=== PATIENT | female | born 1945 | race Caucasian/White ===

== ENCOUNTER 2018-04-11 13:18 | Inpatient (IN) | payer MEDICAID ==
[~2018-04-11] VITALS: Ht 147.3 cm; Wt 95.3 kg
[2018-04-11 13:33] VITALS: BP 117/73
--- NOTE | 2018-04-11 13:39 | NUR ---
PT TRIAGED AND SENT TO [facility] AWARE OF PT STATUS.
--- NOTE | 2018-04-11 14:18 | NUR ---
PT AMBULATED TO ER BED 02
--- NOTE | 2018-04-11 14:22 | NUR ---
PT STATES SHE HAD ABSCESS DRAINED ON SUNDAY AND SHE IS HERE BECAUSE OF 9/10 PAIN AND STATES IT IS STILL LEAKING PUS. ABSCESS IS LOCATED ON R UPPER ARM. CMS INTACT, +SWELLING AND ERYTHEMA. DRESSING INTACT OVER WOUND. PT DNIES CP/COUGH/SOB. NAD. PLACED IN ED ROOM.
[2018-04-11] MEDS ORDERED: CLINDAMYCIN 600 MG in DEXTROSE 5% 50 ML IV ONE (14:55)
[2018-04-11] MEDS ORDERED: KETOROLAC 30 MG/ML VIAL IVP ONE (14:55)
[2018-04-11] MEDS ORDERED: NACL 0.9% 1,000 ML IV ONE (14:55)
[2018-04-11] MEDS ORDERED: CLINDAMYCIN 600 MG/4 ML VIAL ONE (15:09)
[2018-04-11 15:38] LABS: BASOPHILS % (AUTO) 0.5 % (0.0-2.0); EOSINOPHILS # (AUTO) 0.1 K/uL (0-0.4); EOSINOPHILS % (AUTO) 0.9 % (0.0-4.0); HEMATOCRIT 41.3 % (36-48); HEMOGLOBIN 13.8 g/dL (12.0-16.0); LYMPHOCYTES # (AUTO) 2.2 K/uL (2.5-16.5); LYMPHOCYTES % (AUTO) 27.2 % (20.5-51.1); MEAN CORPUSCULAR HEMOGLOBIN 30 pg (27-31); MEAN CORPUSCULAR HGB CONC 33 g/dL (33-37); MEAN CORPUSCULAR VOLUME 89.6 fL (80-94); MONOCYTES # (AUTO) 0.5 K/uL (0.8-1.0); MONOCYTES % (AUTO) 6.1 % (1.7-9.3); NEUTROPHILS # (AUTO) 5.4 K/uL (1.8-7.7); NEUTROPHILS % (AUTO) 65.3 % (42.2-75.2); PLATELET COUNT (AUTO) 226 K/uL (140-450); RED BLOOD CELL COUNT(AUTO) 4.61 MIL/uL (4.20-5.40); RED CELL DISTRIBUTION WIDTH 12.6 % (11.6-13.7); WHITE BLOOD COUNT (AUTO) 8.2 K/uL (4.8-10.8)
[2018-04-11] MEDS ORDERED: LIDOCAINE/EPI 1% 1:100000 20 ML VIAL INJ ONE (16:05)
[2018-04-11 16:10] LABS: POTASSIUM 3.6 mmol/L (3.5-5.1)
[2018-04-11 16:11] LABS: ALBUMIN 3.6 g/dL (3.4-5.0); ANION GAP 9.7 (8-16); CARBON DIOXIDE 28.9 mmol/L (21-32); CREATININE 0.6 mg/dL (0.6-1.3); TOTAL BILIRUBIN 0.5 mg/dL (0.0-1.0)
[2018-04-11] MEDS ORDERED: NACL 0.9% 1,000 ML IV SCH (17:46)
[2018-04-11] MEDS ORDERED: ACETAMINOPHEN 325 MG TAB PO PRN (17:50)
[2018-04-11] MEDS ORDERED: DOCUSATE SODIUM 100 MG GELCAP PO PRN (17:50)
[2018-04-11 18:21] LABS: FREE T4 (FREE THYROXINE) 1.08 ng/dL (0.76-1.46); MAGNESIUM 2.4 mg/dL (1.8-2.4); THYROID STIMULATING HORMONE 1.09 uIU/mL (0.34-3.74)
[2018-04-11 18:26] LABS: APPEARANCE,URINE CLEAR (CLEAR); BILIRUBIN,URINE NEGATIVE (NEGATIVE); BLOOD, URINE NEGATIVE (NEGATIVE); COLOR,URINE YELLOW (YELLOW); LEUKOCYTE ESTERASE ,URINE NEGATIVE (NEGATIVE); NITRITE, URINE NEGATIVE (NEGATIVE); UGLUCOSE NEGATIVE (NEGATIVE)
--- NOTE | 2018-04-11 18:38 | NUR ---
Patient will be admitted to care of DR AVENDANO. Admited toTELE. Will go to room 112A. Belongings list completed. Report to DEBORAH JOHNSON .
--- NOTE | 2018-04-11 18:40 | NUR ---
PATIENT ADMITTED TO THE UNIT FROM ER. PATIENT AWAKE, ALERT AND ORIENTED. NO S/S OF DISTRESS. ABSCESS NOTED TO THE RIGHT ARM WITH PURULENT DRAINAGE NOTED. WOUND CLEANED WITH NS AND COVERED WITH CLEAN DRESSING. PATIENT PLACED ON TELE MONITORING. BED LOWERED WITH CALL LIGHT WITHIN REACH. PATIENT'S SON PRESENT AT BEDSIDE
[2018-04-11 18:42] LABS: BARBITURATE, URINE NEG. ng/ml (NEG <=200); BENZODIAZEPINE, URINE NEG. ng/mL (NEG <=200); CANNABINOID, URINE NEG. ng/mL (NEG <=50); COCAINE, URINE NEG. ng/mL (NEG <=300); OPIATE, URINE NEG. ng/mL (NEG <=2000); PHENCYCLIDINE SCREEN,URINE NEG. ng/mL (NEG <=25)
--- NOTE | 2018-04-11 19:20 | NUR ---
RECEIVED PT FROM DEBORAH JOHNSON .PT KINYARWANDA SPEAKER AAOX4 AMBULATORY ON TELEMETRY SR HL ON LEFT THUMB;, AN ABSCESS AND REDNESS ON RT UPPER ARM [id number] AND OPEN ON THE CENTER 0.5 CM DRAINING PUS PT IS ORIENTED TO THE FLOOR CALL LIGHT WITHIN REACH.
[2018-04-11 20:00] VITALS: BP 140/80
--- NOTE | 2018-04-11 20:00 | NUR ---
DR LAI AT BED SIDE BLOOD SUGAR TEST 95
[2018-04-11] MEDS: DEXT 5% / NACL 0.9% 500 ML IV SCH (20:10)
[2018-04-11] MEDS ORDERED: DEXTROSE 50% 50 ML SYR IVP PRN (20:10)
[2018-04-11] MEDS ORDERED: INSULIN LISPRO SLIDING SCALE 100 UNITS/ML VIAL SUBQ PRN (20:10)
[2018-04-11] MEDS ORDERED: VANCOMYCIN PER PHARMACY MC PRN (20:10)
[2018-04-11] MEDS ORDERED: CETIRIZINE HCL PO PRN (20:15)
[2018-04-11] MEDS ORDERED: BECL10.62 IH (20:28)
[2018-04-11] MEDS ORDERED: CETI1SYR27 PO (20:28)
[2018-04-11] MEDS ORDERED: DOXY100C9 PO (20:28)
[2018-04-11] MEDS ORDERED: FURO-572 PO (20:28)
[2018-04-11] MEDS ORDERED: FAMO-90 PO (20:28)
[2018-04-11] MEDS ORDERED: AZEL205. NS (20:28)
[2018-04-11] MEDS ORDERED: CEPH250C16 PO (20:28)
[2018-04-11] MEDS ORDERED: CARV25TA PO (20:28)
[2018-04-11] MEDS ORDERED: LISI5TAB18 PO (20:28)
[2018-04-11] MEDS ORDERED: ASPI81CT89 PO (20:28)
[2018-04-11] MEDS ORDERED: FLONAS NS (20:28)
[2018-04-11] MEDS ORDERED: LIP80 PO (20:28)
[2018-04-11] MEDS ORDERED: VANCOMYCIN 1GM/DEXT 5% PREMIX 200 ML IV SCH (21:00)
[2018-04-11] MEDS: BLOOD GLUCOSE MONITORING 1 DEV DEV FS SCH (21:05)
[2018-04-11] MEDS: CARVEDILOL 12.5 MG TAB PO SCH (21:16)
--- NOTE | 2018-04-11 22:49 | NUR ---
DR LAI TRANSFER KPT FROM TELEMETRY TO MED SURG
[2018-04-11] MEDS ORDERED: VANCOMYCIN 1,000 MG VIAL ONE (22:56)
[2018-04-11] MEDS: HYDROcodone/APAP 7.5/325 MG 1 TAB PO PRN (23:07)
[2018-04-12] VITALS (7 sets, daily range): BP systolic 121–153; BP diastolic 55–74
--- NOTE | 2018-04-12 01:00 | NUR ---
PT SLEEPING WELL NPO POST MN
[2018-04-12] MEDS: DEXT 5% / NACL 0.9% 500 ML IV SCH ×2 (01:10→06:10)
--- NOTE | 2018-04-12 04:00 | NUR ---
SPONGE BATH GIVEN LINEN CHANGED IV ON LEFT THUMB INFUSING WELL PT VOIDING WELL
[2018-04-12] MEDS: BLOOD GLUCOSE MONITORING 1 DEV DEV FS SCH ×5 (06:43→21:43)
--- NOTE | 2018-04-12 06:46 | NUR ---
PT NPO POST MN BLOOD SUGAR TEST 122.
[2018-04-12 06:51] LABS: BASOPHILS # (AUTO) 0.1 K/uL (0.00-0.22); EOSINOPHILS # (AUTO) 0.1 K/uL (0-0.4); EOSINOPHILS % (AUTO) 1.6 % (0.0-4.0); HEMATOCRIT 36.9 % (36-48); HEMOGLOBIN 12.6 g/dL (12.0-16.0); LYMPHOCYTES # (AUTO) 2.9 K/uL (2.5-16.5); LYMPHOCYTES % (AUTO) 43.1 % (20.5-51.1); MEAN CORPUSCULAR HEMOGLOBIN 30 pg (27-31); MEAN CORPUSCULAR HGB CONC 34 g/dL (33-37); MEAN CORPUSCULAR VOLUME 88.9 fL (80-94); MONOCYTES # (AUTO) 0.5 K/uL (0.8-1.0); MONOCYTES % (AUTO) 7.2 % (1.7-9.3); NEUTROPHILS # (AUTO) 3.1 K/uL (1.8-7.7); NEUTROPHILS % (AUTO) 47.1 % (42.2-75.2); PLATELET COUNT (AUTO) 221 K/uL (140-450); RED BLOOD CELL COUNT(AUTO) 4.15 MIL/uL (4.20-5.40); RED CELL DISTRIBUTION WIDTH 12.8 % (11.6-13.7); WHITE BLOOD COUNT (AUTO) 6.6 K/uL (4.8-10.8)
--- NOTE | 2018-04-12 07:20 | NUR ---
RECEIVED REPORT FROM THE MATERIAL HANDLING WAREHOUSE SUPERVISOR NURSE AT BEDSIDE FOR CONTINUITY OF CARE. PT IS AWAKE AND ORIENTED, INDONESIAN SPEAKING. INTRODUCED MYSELF AND UPDATED THE BOARD. PT HAS DRESSING ON R UA. DRY AND INTACT. LBM ON 04/11, IV ON L THUMB 24G D5NS AT 100ML. PT IS TO HAVE I AND D TODAY. NPO SINCE MIDNIGHT. V/S WITHIN NORMAL RANGE. NO CONSENT IS SIGNED. WILL GET CONSENT. WILL CONTINUE TO MONITOR PT.
[2018-04-12 07:21] LABS: MAGNESIUM 2.2 mg/dL (1.8-2.4); PHOSPHORUS 4.5 mg/dL (2.5-4.9)
[2018-04-12 07:27] LABS: CHOL/HDL RATIO 4.8 (1-4.5)
[2018-04-12 07:32] LABS: ANION GAP 8.4 (8-16); CARBON DIOXIDE 27.4 mmol/L (21-32); CREATININE 0.6 mg/dL (0.6-1.3); POTASSIUM 3.8 mmol/L (3.5-5.1)
[2018-04-12 08:43] LABS: T4 (THYROXINE) 9.5 ug/dL (4.5-12.0)
[2018-04-12] MEDS: ATORVASTATIN 80 MG TAB PO SCH (08:46)
[2018-04-12] MEDS: FLUTICASONE NASAL 50 MCG/ACTUATION 16 GM BTL NS SCH (08:46)
[2018-04-12] MEDS: DEXT 5% /NACL 0.9% 1,000 ML IV SCH ×2 (08:46→16:57)
[2018-04-12] MEDS: FUROSEMIDE 20 MG TAB PO SCH (08:47)
[2018-04-12] MEDS: LISINOPRIL 5 MG TAB PO SCH (08:47)
[2018-04-12] MEDS: HYDROcodone/APAP 7.5/325 MG 1 TAB PO PRN ×2 (08:47→14:51)
[2018-04-12] MEDS: FAMOTIDINE 20 MG TAB PO SCH (08:48)
--- NOTE | 2018-04-12 08:48 | NUR ---
PATIENT HAS BEEN SCREENED AND CATEGORIZED HIGH NUTRITION RISK. PATIENT WILL BE SEEN WITHIN 1-2 DAYS OF ADMISSION. 04/12/18 04/13/[address]
[2018-04-12] MEDS ORDERED: LORATADINE 10 MG TAB PO PRN (08:55)
[2018-04-12] MEDS ORDERED: CARVEDILOL 12.5 MG TAB PO SCH (09:00)
[2018-04-12] MEDS ORDERED: ASPIRIN 81 MG TAB.CHEW PO SCH (09:00)
[2018-04-12] MEDS ORDERED: LACTOBACILLUS RHAMNOSUS GG 1 EACH CAP PO SCH (09:00)
[2018-04-12] MEDS: VANCOMYCIN 1GM/DEXT 5% PREMIX 200 ML IV SCH ×2 (11:37→22:40)
--- NOTE | 2018-04-12 11:41 | NUR ---
ADMINISTERED VANCO. PT TOLERATING WELL. CHECKED BS. 138. NO INSULIN COVERAGE NEEDED. PT STILL AWAITING DR. COBOS CONSULT. WILL CONTINUE TO MONITOR PT.
--- NOTE | 2018-04-12 12:30 | NUR ---
SPOUSE CAME FOR UPDATES. FAMILY AT BEDSIDE. PT SLEEPING. NO SIGNS OF DISTRESS. WILL CONTINUE TO MONITOR PT.
--- NOTE | 2018-04-12 14:55 | NUR ---
PT REQUESTED ANOTHER NORCO FOR PAIN. 02/03. ASKED ABOUT DR COBOS, IF HE IS PLANNING ON COMING. UNCERTAIN WHEN. WILL CONTINUE TO MONITOR PT.
--- NOTE | 2018-04-12 17:48 | NUR ---
PT IS RESTING. NO SIGNS OF DISTRESS. WILL CONTINUE TO MONITOR PT.
--- NOTE | 2018-04-12 18:11 | NUR ---
FAMILY C/O WOUND DRAINING. CHANGED THE DRESSING. PT TOLERATED WELL. WILL CONTINUE TO MONITOR PT.
--- NOTE | 2018-04-12 19:10 | NUR ---
DR. COBOS IS HERE. ASSESSED PT. WILL DO SURGERY TONIGHT AFTER 106A. GOT CONSENT FOR THE PROCEDURE. PT DAUGHTER AND FAMILY AT BEDSIDE. REFUSED BLUE PHONE FOR INTERPRETATION. W/ FULL UNDERSTANDING, PT SIGNED THE CONSENT FORM. IT IS IN THE CHART.
--- NOTE | 2018-04-12 19:15 | NUR ---
ENDORSED PT TO THE DIGITAL MARKETING LEAD NURSE AT BEDSIDE FOR CONTINUITY OF CARE. PT IS IN STABLE CONDITION.
--- NOTE | 2018-04-12 19:15 | NUR ---
RECEIVED REPORT FROM DAY SHIFT NURSE AT PT BEDSIDE. PT IN STABLE CONDITION. FAMILY IS AT BEDSIDE. PT IS A/O X4. PT IS ON RA. PT HAS R UPPER ARM ABSCESS WITH MINIMAL DRAINAGE. IV ACCESS IN L THUMB 24G WITH IVF RUNNING PER MD ORDERS. PT HAS NO C/O PAIN AT THIS TIME. BED IS LOCKED, LOW POSITION WITH SIDE RAILS UP X2. BOARD UPDATED. CALL LIGHT WITHIN REACH. WILL CONTINUE TO MONITOR.
--- NOTE | 2018-04-12 19:26 | NUR ---
OR NURSE HERE TO TAKE PT TO SURGERY. PT IN STABLE CONDITION.
[2018-04-12] MEDS ORDERED: MIDAZOLAM 2 MG/2 ML VIAL ONE (19:45)
[2018-04-12] MEDS ORDERED: fentaNYL 0.05 MG/ML VIAL ONE (19:46)
[2018-04-12] MEDS ORDERED: MEPERIDINE 50 MG/ML SYR ONE (19:46)
[2018-04-12] MEDS ORDERED: SEVOFLURANE 250 ML BTL INH ONE (19:50)
[2018-04-12] MEDS ORDERED: BUPIVACAINE-MPF 0.5% 30 ML VIAL INJ ONE (19:54)
[2018-04-12] MEDS ORDERED: VANCOMYCIN 1,000 MG VIAL ONE (20:02)
[2018-04-12] MEDS ORDERED: diphenhydrAMINE 50 MG/ML VIAL IVP PRN (20:50)
[2018-04-12] MEDS ORDERED: ONDANSETRON 4 MG/2 ML VIAL IVP PRN (20:50)
[2018-04-12] MEDS ORDERED: MEPERIDINE 25 MG/ML SYR IVP PRN (20:50)
[2018-04-12] MEDS ORDERED: HYDROmorphone 1 MG/ML AMP IVP PRN (21:00)
[2018-04-12] MEDS ORDERED: MEPERIDINE 25 MG/ML SYR ONE (21:16)
[2018-04-12] MEDS ORDERED: BLOOD GLUCOSE MONITORING 1 DEV DEV FS ONE (21:30)
--- NOTE | 2018-04-12 21:36 | NUR ---
PT ARRIVED BACK ON UNIT FROM OR. PT IN STABLE CONDITION. PT VS WITHIN NORMAL LIMITS. WILL CONTINUE TO MONITOR.
[2018-04-12] MEDS: NACL 0.9% 1,000 ML IV SCH (21:54)
[2018-04-12] MEDS: CARVEDILOL 12.5 MG TAB PO SCH (21:55)
[2018-04-12] MEDS: ONDANSETRON 4 MG/2 ML VIAL IM/IVP PRN (21:55)
--- NOTE | 2018-04-12 21:55 | NUR ---
PT C/O NAUSEA. ZOFRAN GIVEN. PT TOLERATED WELL. WILL CONTINUE TO MONITOR.
--- NOTE | 2018-04-12 22:40 | NUR ---
ORDERED ANTIBIOTICS ADMINISTERED. PT TOLERATING WELL. WILL CONTINUE TO MONITOR.
[2018-04-13] VITALS: BP 102/55
--- NOTE | 2018-04-13 00:06 | NUR ---
PT VS WITHIN NORMAL LIMITS. WILL CONTINUE TO MONITOR PT.
--- NOTE | 2018-04-13 02:30 | NUR ---
PT ASLEEP IN BED. NO SIGNS OR SYMPTOMS OF DISTRESS. WILL CONTINUE TO MONITOR PT.
[2018-04-13] MEDS: DEXT 5% /NACL 0.9% 1,000 ML IV SCH ×2 (02:57→12:57)
[2018-04-13] MEDS: HYDROcodone/APAP 7.5/325 MG 1 TAB PO PRN ×2 (04:07→09:34)
--- NOTE | 2018-04-13 04:07 | NUR ---
PT C/O PAIN. NORCO GIVEN. WILL CONTINUE TO MONITOR.
[2018-04-13] MEDS: NACL 0.9% 1,000 ML IV SCH ×3 (05:07→18:15)
--- NOTE | 2018-04-13 06:10 | NUR ---
BS CHECKED, 97. NO INSULIN COVERAGE NEEDED PER MD ORDERS.
[2018-04-13] MEDS: BLOOD GLUCOSE MONITORING 1 DEV DEV FS SCH ×4 (06:15→21:25)
--- NOTE | 2018-04-13 07:15 | NUR ---
RECEIVED REPORT FROM TOP FLAVOR ATTENDANT RN. PT IN STABLE CONDITION, RESTING IN BED, AAO X4. SOUTH AFRICAN SPEAKING. NO COMPLAINTS OF PAIN OR NAUSEA AT THIS TIME. S/P I&D OF RIGHT UPPER ARM 04/12/18. DRESSING INTACT, WITH SOME SATURATION OF BLOOD. MD TO REMOVE AND APPLY FIRST DRESSING. IV SITE PATENT AND INFUSING IVF PER MD ORDERS. ALL SAFETY PRECAUTIONS IN PLACE, WILL CONTINUE TO MONITOR.
--- NOTE | 2018-04-13 07:23 | NUR ---
ENDORSED PT TO DAY SHIFT NURSE FOR CONTINUITY OF CARE. PT IN STABLE CONDITION.
[2018-04-13 08:00] VITALS: BP 145/77
[2018-04-13 08:57] LABS: BASOPHILS # (AUTO) 0.1 K/uL (0.00-0.22); BASOPHILS % (AUTO) 0.7 % (0.0-2.0); EOSINOPHILS # (AUTO) 0.1 K/uL (0-0.4); EOSINOPHILS % (AUTO) 1.7 % (0.0-4.0); HEMATOCRIT 36.2 % (36-48); HEMOGLOBIN 12.3 g/dL (12.0-16.0); LYMPHOCYTES # (AUTO) 2.4 K/uL (2.5-16.5); LYMPHOCYTES % (AUTO) 28.6 % (20.5-51.1); MEAN CORPUSCULAR HEMOGLOBIN 30 pg (27-31); MEAN CORPUSCULAR HGB CONC 34 g/dL (33-37); MEAN CORPUSCULAR VOLUME 88.7 fL (80-94); MONOCYTES # (AUTO) 0.6 K/uL (0.8-1.0); NEUTROPHILS # (AUTO) 5.2 K/uL (1.8-7.7); PLATELET COUNT (AUTO) 232 K/uL (140-450); RED BLOOD CELL COUNT(AUTO) 4.09 MIL/uL (4.20-5.40); RED CELL DISTRIBUTION WIDTH 12.8 % (11.6-13.7); WHITE BLOOD COUNT (AUTO) 8.4 K/uL (4.8-10.8)
[2018-04-13 09:11] LABS: ANION GAP 8.6 (8-16); CARBON DIOXIDE 27.2 mmol/L (21-32); CREATININE 0.8 mg/dL (0.6-1.3); POTASSIUM 3.8 mmol/L (3.5-5.1)
[2018-04-13 09:13] LABS: MAGNESIUM 2.2 mg/dL (1.8-2.4); PHOSPHORUS 4.6 mg/dL (2.5-4.9)
[2018-04-13] MEDS: FAMOTIDINE 20 MG TAB PO SCH (09:25)
[2018-04-13] MEDS: LISINOPRIL 5 MG TAB PO SCH (09:25)
[2018-04-13] MEDS: LACTOBACILLUS RHAMNOSUS GG 1 EACH CAP PO SCH (09:25)
[2018-04-13] MEDS: ATORVASTATIN 80 MG TAB PO SCH (09:25)
[2018-04-13] MEDS: FLUTICASONE NASAL 50 MCG/ACTUATION 16 GM BTL NS SCH (09:26)
[2018-04-13] MEDS: FUROSEMIDE 20 MG TAB PO SCH (09:26)
[2018-04-13] MEDS: ONDANSETRON 4 MG/2 ML VIAL IM/IVP PRN ×3 (09:33→21:33)
--- NOTE | 2018-04-13 09:33 | NUR ---
ZOFRAN ADMINISTERED FOR NAUSEA PER MD ORDERS.
--- NOTE | 2018-04-13 10:33 | NUR ---
PT REPORTS CESSATION OF NAUSEA, ONE HOUR AFTER ZOFRAN IVP.
--- NOTE | 2018-04-13 12:13 | NUR ---
04/13/18 RD INITIAL ASSESSMENT COMPLETED PLEASE REFER TO NUTRITION ASSESSMENT UNDER CARE ACTIVITY FOR ESTIMATED NUTRITIONAL NEEDS. RD RECOMMENDATIONS: 1- RECOMMEND CONTINUE 60G CCHO DIET 2- PROVIDE EDUCATIONAL MATERIAL FOR PT 3- RD F/U 5-7 DAYS; LOW RISK OMID CASTRO MBA, RD
--- NOTE | 2018-04-13 13:05 | NUR ---
FAMILY MEMBERS CALLED FOR UPDATE ON PATIENT CONDITION. WILL FIND OUT ABOUT DISCHARGE PLANS AND REPORT TO FAMILY WHEN THEY VISIT PT LATER TODAY.
--- NOTE | 2018-04-13 14:28 | NUR ---
PATIENT VOMITED 20 ML. ADMINISTERED ZOFRAN IVP.
[2018-04-13] MEDS: MORPHINE SULFATE 2 MG/ML SYR IVP PRN ×2 (14:34→21:33)
--- NOTE | 2018-04-13 15:30 | NUR ---
PATIENT SITTING IN BED, TALKING WITH FAMILY. DENIES NAUSEA, ONE HOUR AFTER ZOFRAN IVP.
[2018-04-13 16:00] VITALS: BP 141/67
[2018-04-13] MEDS: VANCOMYCIN 1GM/DEXT 5% PREMIX 200 ML IV SCH (18:17)
--- NOTE | 2018-04-13 18:17 | NUR ---
VANCO ADMINISTERED PER MD ORDERS. PHARMACY IS CLOSED. PER CHARGE NURSE, IT IS OKAY TO GIVE VANCO.
--- NOTE | 2018-04-13 19:16 | NUR ---
RECEIVED PT REPORT FROM DAY SHIFT NURSE AT BEDSIDE. PT IN STABLE CONDITION. FAMILY AT BEDSIDE. PT IS A/O X4. IV ACCESS IN L WRIST 22G WITH IVF RUNNING PER MD ORDERS. IV IS PATENT AND INTACT. PT HAD I&D IF R UPPER ARM ABSCESS 04/12. DRESSING IS INTACT WITH SOME SATURATION. MD TO PERFORM FIRST DRESSING CHANGE. PT HAS NO C/O PAIN AT THIS TIME. BED IS LOCKED, LOW POSITION WITH SIDE RAILS UP X2. CALL LIGHT IS WITHIN REACH. BOARD UPDATED. WILL CONTINUE TO MONITOR PT.
--- NOTE | 2018-04-13 19:16 | NUR ---
ENDORSED PLAN OF CARE TO PRODUCE DEPARTMENT MANAGER RN. PT IN STABLE CONDITION.
[2018-04-13 20:00] VITALS: BP 145/78
--- NOTE | 2018-04-13 21:25 | NUR ---
BS CHECKED,160. PT IS REFUSING MD ORDERED INSULIN COVERAGE. PS STATED "I NEVER TAKE THAT AT HOME AND DONT WANT IT." EXPLAINED TO PT THAT HER SUGAR IS ELEVATED AND THE INSULIN WILL HELP TO LOWER IT BUT PT DID NOT WANT IT.
[2018-04-13] MEDS: CARVEDILOL 12.5 MG TAB PO SCH (21:33)
--- NOTE | 2018-04-13 21:33 | NUR ---
PT C/O NAUSEA. ZOFRAN GIVEN. WILL CONTINUE TO MONITOR.
--- NOTE | 2018-04-13 21:34 | NUR ---
PT C/O PAIN AT INCISION SITE. MORPHINE GIVEN. PT TOLERATED WELL. WILL CONTINUE TO MONITOR.
[2018-04-14] VITALS: BP 109/55
--- NOTE | 2018-04-14 | NUR ---
PT VS WITHIN NORMAL LIMITS. NO C/O PAIN AT THIS TIME. WILL CONTINUE TO MONITOR.
[2018-04-14] MEDS: BLOOD GLUCOSE MONITORING 1 DEV DEV FS SCH ×3 (06:19→16:25)
--- NOTE | 2018-04-14 06:19 | NUR ---
BS CHECKED, 108. NO COVERAGE NEEDED PER MD ORDERS.
[2018-04-14] MEDS: HYDROcodone/APAP 7.5/325 MG 1 TAB PO PRN (06:21)
[2018-04-14] MEDS: ONDANSETRON 4 MG/2 ML VIAL IM/IVP PRN ×2 (06:21→16:29)
[2018-04-14] MEDS: NACL 0.9% 1,000 ML IV SCH (06:21)
--- NOTE | 2018-04-14 06:21 | NUR ---
PT C/O PAIN AND NAUSEA. ZOFRAN AND NORCO GIVEN. WILL CONTINUE TO MONITOR.
[2018-04-14 07:07] LABS: BASOPHILS % (AUTO) 0.6 % (0.0-2.0); EOSINOPHILS # (AUTO) 0.1 K/uL (0-0.4); EOSINOPHILS % (AUTO) 1.4 % (0.0-4.0); HEMATOCRIT 34.8 % (36-48); HEMOGLOBIN 11.7 g/dL (12.0-16.0); LYMPHOCYTES # (AUTO) 2.2 K/uL (2.5-16.5); LYMPHOCYTES % (AUTO) 31.7 % (20.5-51.1); MEAN CORPUSCULAR HEMOGLOBIN 30 pg (27-31); MEAN CORPUSCULAR HGB CONC 34 g/dL (33-37); MEAN CORPUSCULAR VOLUME 88.7 fL (80-94); MONOCYTES # (AUTO) 0.5 K/uL (0.8-1.0); MONOCYTES % (AUTO) 7.6 % (1.7-9.3); NEUTROPHILS % (AUTO) 58.7 % (42.2-75.2); PLATELET COUNT (AUTO) 202 K/uL (140-450); RED BLOOD CELL COUNT(AUTO) 3.92 MIL/uL (4.20-5.40); RED CELL DISTRIBUTION WIDTH 12.6 % (11.6-13.7); WHITE BLOOD COUNT (AUTO) 6.9 K/uL (4.8-10.8)
--- NOTE | 2018-04-14 07:20 | NUR ---
RECEIVED REPORT FROM HIGH PRESSURE CLEANER RN. PT IN STABLE CONDITION. BANDAGE ON RIGHT UPPER ARM S/P I&D IS DRY AND INTACT. NO COMPLAINTS OF PAIN OR DISCOMFORT AT THIS TIME. PT STATES SHE HAS SOME ANXIETY NOW. IV SITE PATENT ASYMPTOMATIC, RUNNING IVF PER MD ORDERS. ALL SAFETY PRECAUTIONS IN PLACE, WILL CONTINUE TO MONITOR.
--- NOTE | 2018-04-14 07:29 | NUR ---
ENDORSED PT TO DAY SHIFT NURSE FOR CONTINUITY OF CARE. PT IN STABLE CONDITION.
[2018-04-14 08:00] VITALS: BP 133/65
[2018-04-14 08:10] LABS: ANION GAP 11.8 (8-16); CARBON DIOXIDE 26.8 mmol/L (21-32); CREATININE 0.8 mg/dL (0.6-1.3); POTASSIUM 3.6 mmol/L (3.5-5.1)
[2018-04-14 08:27] LABS: MAGNESIUM 1.9 mg/dL (1.8-2.4); PHOSPHORUS 3.7 mg/dL (2.5-4.9)
[2018-04-14] MEDS: LISINOPRIL 5 MG TAB PO SCH (09:19)
[2018-04-14] MEDS: FAMOTIDINE 20 MG TAB PO SCH (09:19)
[2018-04-14] MEDS: ATORVASTATIN 80 MG TAB PO SCH (09:19)
[2018-04-14] MEDS: FUROSEMIDE 20 MG TAB PO SCH (09:19)
[2018-04-14] MEDS: LACTOBACILLUS RHAMNOSUS GG 1 EACH CAP PO SCH (09:19)
[2018-04-14] MEDS: FLUTICASONE NASAL 50 MCG/ACTUATION 16 GM BTL NS SCH (09:20)
[2018-04-14] MEDS: MORPHINE SULFATE 2 MG/ML SYR IVP PRN ×2 (09:21→15:05)
[2018-04-14] MEDS ORDERED: LORazepam 2 MG/ML VIAL IVP PRN (09:30)
--- NOTE | 2018-04-14 09:32 | NUR ---
PATIENT COMPLAINING OF CHEST PAIN 7/10 AND RIGHT ARM PAIN 8/10, AND ANXIETY. ADMINISTERED MORPHINE, WILL CONTINUE TO MONITOR PT. DR. DAVILA AWARE OF THE PAIN AND ANXIETY SYMPTOMS. MD TO PUT IN ORDER FOR ATIVAN. DR. DAVILA WILL ALSO CONTACT DR. COBOS REGARDING RIGHT ARM DRESSING CHANGE INSTRUCTIONS.
--- NOTE | 2018-04-14 11:50 | NUR ---
PT STATES THAT PAIN IS NOW 3/10 TOLERABLE. ANXIETY SYMPTOMS HAVE DECREASED WELL. PT DENIES THE NEED FOR ANY PAIN OR ANXIETY MEDICATION. WILL CONTINUE TO MONITOR.
[2018-04-14] MEDS: VANCOMYCIN 1GM/DEXT 5% PREMIX 200 ML IV SCH (12:34)
--- NOTE | 2018-04-14 13:05 | NUR ---
CALLED AND LEFT MESSAGE WITH DAUGHTER REGARDING POSSIBLE DISCHARGE OF PT TODAY. PT WILL NEED TO PERFORM WOUND DRESSING CHANGE AT HOME, SO LEFT MESSAGE REGARDING THE NEED FOR FAMILY TO BE AT BEDSIDE TO VIEW DRESSING CHANGE PERFORMED AND TAUGHT BY NURSE. WILL FOLLOW UP.
--- NOTE | 2018-04-14 13:15 | NUR ---
DAUGHTER CALLED TO SAY THAT SHE WILL BE HERE AFTER 4PM TODAY TO SEE DRESSING CHANGE DEMONSTRATION AND TEACHING.
[2018-04-14] MEDS ORDERED: ACET-2869 PO (13:47)
[2018-04-14] MEDS ORDERED: ONDA8ODT2 PO (13:47)
[2018-04-14] MEDS ORDERED: LACT1.4C PO (13:54)
[2018-04-14] MEDS ORDERED: AMOX-999 PO (13:54)
[2018-04-14] MEDS ORDERED: DOCU-299 PO (13:54)
--- NOTE | 2018-04-14 15:00 | NUR ---
PATIENT COMPLAINING OF 8/10 PAIN DURING PROCESS OF DRESSING REMOVAL FROM RIGHT DELTOID. DRIED BLOOD CAUSING GAUZE DRESSING TO ADHERE TO INCISION. DRESSING SOAKED WITH NORMAL SALINE, AND MORPHINE IVP ADMINISTERED PRIOR TO COMPLETELY REMOVING GAUZE DRESSING. PT COMPLAINING OF 10/10 PAIN WHEN ATTEMPTING TO REMOVE PACKED GAUZE, 20 MINUTES AFTER MORPHINE IVP ADMINISTRATION. PACKED DRESSING ALSO SOAKED WITH NORMAL SALINE. PER DR. DAVILA, LEAVE THE PACKED DRESSING IN AND FOLLOW UP WITH PRIMARY CARE PHYSICIAN. INCISION WITH PREVIOUS GAUZE PACKING COVERED WITH CLEAN AND DRY GAUZE.
[2018-04-14 16:00] VITALS: BP 108/66
--- NOTE | 2018-04-14 16:29 | NUR ---
ZOFRAN IVP ADMINISTERED FOR PT C/O NAUSEA. NO VOMITING SEEN. ICE CHIPS GIVEN TO PT PER PT REQUEST.
--- NOTE | 2018-04-14 17:29 | NUR ---
NO COMPLAINTS OF NAUSEA, ONE HOUR AFTER ZOFRAN IVP.
--- NOTE | 2018-04-14 17:40 | NUR ---
DISCHARGE PAPERWORK, INCLUDING APPOINTMENT WITH DR. COBOS AND INSTRUCTIONS TO FOLLOW UP WITH PCP FOR DRESSING CHANGE AND NEW PRESCRIPTIONS, GIVEN TO PATIENT AND FAMILY MEMBER AT BEDSIDE. PATIENT PREFERS FAMILY MEMBERS AT BEDSIDE TO TRANSLATE. PATIENT WILL NOT NEED DRESSING CHANGE AT HOME. MEDICATION RECONCILIATION TEACHING GIVEN. PATIENT AND FAMILY VERBALIZED COMPLETE UNDERSTANDING OF ALL DISCHARGE INSTRUCTIONS AND TEACHING. ID BANDS REMOVED. IV CANNULA REMOVED WITH MINIMAL BLOOD LOSS AND LUMEN COMPLETELY INTACT. ALL PERSONAL BELONGINGS ARE WITH FAMILY. PATIENT MST UNIT FOR HOME VIA PRIVATE VEHICLE WITH FAMILY.
== END 2018-04-14 17:40 | disposition home or self-care (01) | DRG 383 ==
LOC: MED 13:18 → MTU 18:14 → MMU 19:35
PROVIDERS: ADMIT General Practice; ATTEND General Practice
PROC: 0X9 Anatomical Regions, Upper Extremities, Drainage (ICD-10-PCS; principal; 2018-04-11)
PROC: 0JBD0ZZ Excision of Right Upper Arm Subcutaneous Tissue and Fascia, Open Approach (ICD-10-PCS; 2018-04-12)
DX: L03.113 Cellulitis of right upper limb (principal); E11.65 Type 2 diabetes mellitus with hyperglycemia; L72.3 Sebaceous cyst; L02.413 Cutaneous abscess of right upper limb; E66.01 Morbid (severe) obesity due to excess calories; I10 Essential (primary) hypertension; I25.10 Atherosclerotic heart disease of native coronary artery without angina pectoris; E78.5 Hyperlipidemia, unspecified; J45.909 Unspecified asthma, uncomplicated; K21.9 Gastro-esophageal reflux disease without esophagitis; Z68.41 Body mass index [BMI] 40.0-44.9, adult; Z95.5 Presence of coronary angioplasty implant and graft; Z87.891 Personal history of nicotine dependence; Z79.82 Long term (current) use of aspirin; Z79.899 Other long term (current) drug therapy; Z82.49 Family history of ischemic heart disease and other diseases of the circulatory system; Z80.9 Family history of malignant neoplasm, unspecified; Z79.84 Long term (current) use of oral hypoglycemic drugs
CPT/HCPCS: 36415; 71045; 76536; 80048; 80053; 80202; 80305; 81003; 82150; 82948; 83036; 83605; 83690; 83735; 83880; 84100; 84436; 84439; 84443; 84479; 84484; 85025; 85610; 85730; 87040; 87070; 87075; 87081; 87086; 87205; 88304; 93925; 93970; 96361; 96365; 96375; 99285; J1815; J1885; J2001; J2175; J2250; J2270; J2405; J3010; J3370; J3490; J7030; J7042; J7060; Q0092

== ENCOUNTER 2018-05-21 11:35 | Inpatient (IN) | payer MEDICAID ==
[~2018-05-21] VITALS: Ht 160 cm; Wt 93.4 kg
[~2018-05-21 11:35] MED LIST: AMOX-999 PO; ASPI81CT89 PO; AZEL205. NS; BECL10.62 IH; CARV25TA PO; CETI1SYR27 PO; DOCU-299 PO; DOXY100C9 PO; FAMO-90 PO; FLONAS NS; FURO-572 PO; HYDR-5122 PO; LACT1.4C PO; LIP80 PO; LISI5TAB18 PO; ONDA8ODT2 PO
[2018-05-21 11:36] VITALS: BP 109/51
--- NOTE | 2018-05-21 11:46 | NUR ---
PT AMBULATES TO BED 2
--- NOTE | 2018-05-21 11:50 | NUR ---
72Y/F BIB DAUGHTER AFTER DR COBOS TOLD PT AT FOLLOW UP TO COME TO ER FOR AN ADMIT FOR SURGERY. PT WAS ADMITTED AND HAD SURGERY TO RIGHT UPPER ARM 1.5 MONTH AGO WHEN BLACK HEAD TURNED INTO CYST. BED DOWN; BEDRAIL UP X 1; ER MD AWARE AND NOTIFIED OF PT STATUS. HX CONTROLLED DM, NO LONGER TAKES DM MED, CATARACTS
--- NOTE | 2018-05-21 12:30 | NUR ---
OH AT BEDSIDE WITH PT
[2018-05-21 13:13] LABS: BASOPHILS # (AUTO) 0.1 K/uL (0.00-0.22); BASOPHILS % (AUTO) 1.3 % (0.0-2.0); EOSINOPHILS # (AUTO) 0.1 K/uL (0-0.4); HEMATOCRIT 37.5 % (36-48); HEMOGLOBIN 12.7 g/dL (12.0-16.0); LYMPHOCYTES # (AUTO) 2.2 K/uL (2.5-16.5); LYMPHOCYTES % (AUTO) 34.4 % (20.5-51.1); MEAN CORPUSCULAR HEMOGLOBIN 31 pg (27-31); MEAN CORPUSCULAR HGB CONC 34 g/dL (33-37); MONOCYTES # (AUTO) 0.4 K/uL (0.8-1.0); MONOCYTES % (AUTO) 5.4 % (1.7-9.3); NEUTROPHILS # (AUTO) 3.7 K/uL (1.8-7.7); NEUTROPHILS % (AUTO) 57.9 % (42.2-75.2); PLATELET COUNT (AUTO) 185 K/uL (140-450); RED BLOOD CELL COUNT(AUTO) 4.17 MIL/uL (4.20-5.40); RED CELL DISTRIBUTION WIDTH 13.1 % (11.6-13.7); WHITE BLOOD COUNT (AUTO) 6.5 K/uL (4.8-10.8)
[2018-05-21] MEDS ORDERED: ONDANSETRON 4 MG/2 ML VIAL IM/IVP PRN (13:25)
[2018-05-21] MEDS ORDERED: LORazepam 2 MG/ML VIAL IM/IVP PRN (13:25)
[2018-05-21] MEDS ORDERED: DOCUSATE SODIUM 100 MG GELCAP PO PRN (13:25)
[2018-05-21] MEDS ORDERED: HYDROcodone/APAP 5/325 MG 1 TAB TAB PO PRN (13:25)
[2018-05-21] MEDS ORDERED: MORPHINE SULFATE 2 MG/ML SYR IVP PRN (13:25)
[2018-05-21] MEDS ORDERED: ACETAMINOPHEN 325 MG TAB PO PRN (13:25)
[2018-05-21] MEDS ORDERED: ZOLPIDEM 5 MG TAB PO PRN (13:25)
--- NOTE | 2018-05-21 13:50 | NUR ---
Patient will be admitted to care of . Admited to med surg. Will go to room 121-A. Belongings list completed. Report to holly weber.
--- NOTE | 2018-05-21 13:51 | NUR ---
PT TAKEN TO FLOOR BY ALEX ROSE
--- NOTE | 2018-05-21 13:55 | NUR ---
PT ARRIVED ON THE UNIT WITH 2 ER NURSES, IN A WHEELCHAIR. PT IS AWAKE AND ORIENTED. AMBULATED TO THE BED. GAIT STEADY. HERE FOR I AND D ON R UA. INTRODUCED MYSELF AND UPDATED THE BOARD. V/S WITHIN NORMAL RANGE. IV ON L AC 20G. ROOM AIR. SKIN INTACT. PT IS NPO AT THIS MOMENT BUT ATE BREAKFAST AT 1030. LBM WAS 05/21/18. WILL CONTINUE WITH ADMISSION PROCESS.
[2018-05-21 14:00] VITALS: BP 162/76
[2018-05-21 14:13] LABS: ANION GAP 8.4 (8-16); CARBON DIOXIDE 26.7 mmol/L (21-32); CREATININE 0.9 mg/dL (0.6-1.3); POTASSIUM 4.1 mmol/L (3.5-5.1)
[2018-05-21 14:19] LABS: ALBUMIN 3.3 g/dL (3.4-5.0); TOTAL BILIRUBIN 0.4 mg/dL (0.0-1.0)
[2018-05-21 14:28] LABS: MAGNESIUM 2.4 mg/dL (1.8-2.4); PHOSPHORUS 3.3 mg/dL (2.5-4.9); THYROID STIMULATING HORMONE 1.66 uIU/mL (0.34-3.74)
[2018-05-21 14:36] LABS: PROTHROMBIN TIME 10.4 secs (10.8-13.4)
[2018-05-21] MEDS ORDERED: BUPIVACAINE-MPF/EPI 0.5% 30 ML VIAL INJ ONE (15:00)
[2018-05-21] MEDS ORDERED: LIDOCAINE/EPI MPF 1%1:200000 30 ML VIAL INJ ONE (15:00)
--- NOTE | 2018-05-21 15:00 | NUR ---
O/R NURSES HERE TO TAKE PT FOR SURGERY. PER ANESTHESIOLOGIST, SINCE PT ATE BREAKFAST AT 1030, WILL NOT DO COMPLETE SEDATION. DR COBOS WILL DO LOCAL ANESTHESIA. PT IN STABLE CONDITION.
[2018-05-21] MEDS ORDERED: CETIRIZINE HCL PO PRN (15:20)
[2018-05-21] MEDS ORDERED: ceFAZolin 1,000 MG VIAL ONE (15:36)
[2018-05-21] MEDS ORDERED: INSULIN LISPRO SLIDING SCALE 100 UNITS/ML VIAL SUBQ PRN (15:45)
[2018-05-21] MEDS ORDERED: DEXTROSE 50% 50 ML SYR IVP PRN (15:45)
[2018-05-21] MEDS ORDERED: LORATADINE 10 MG TAB PO PRN (15:50)
[2018-05-21] MEDS ORDERED: ALBUTEROL SULFATE/IPRATROPIU 3 ML SOL IH PRN (15:50)
--- NOTE | 2018-05-21 16:00 | NUR ---
CHECKED ON PT. PT WAS IN SURGERY.
[2018-05-21] MEDS: NACL 0.9% 1,000 ML IV SCH (16:20)
[2018-05-21] MEDS ORDERED: CLINDAMYCIN 600 MG in DEXTROSE 5% 50 ML IV SCH (16:22)
[2018-05-21] MEDS ORDERED: CLINDAMYCIN PHOS 600MG/D5W PM 50 ML IV SCH (16:26)
[2018-05-21 17:00] VITALS: BP 158/74
--- NOTE | 2018-05-21 17:00 | NUR ---
PT RETURNED TO THE UNIT. AWAKE AND ORIENTED. DENIES PAIN. V/S WITHIN NORMAL RANGE. DENIES PAIN. WILL CONTINUE TO MONITOR PT.
[2018-05-21] MEDS: BLOOD GLUCOSE MONITORING 1 DEV DEV FS SCH ×2 (17:21→21:35)
[2018-05-21] MEDS: metFORMIN 500 MG TAB PO SCH (17:24)
--- NOTE | 2018-05-21 17:25 | NUR ---
ADMINISTERED IVF AND CLINDAMYCIN. PT TOLERATED WELL. DAUGHTER IN LAW AT BEDSIDE. WILL CONTINUE TO MONITOR PT.
--- NOTE | 2018-05-21 17:45 | NUR ---
ADMINISTERED TYLENOL FOR MILD BEYER. PT TOLERATED WELL. WILL CONTINUE TO MONITOR PT.
--- NOTE | 2018-05-21 18:00 | NUR ---
PT C/O IV LEAKING. RESTARTED A NEW IV ON L FA 22G. INFUSING WELL. WILL CONTINUE ABX AND FLUIDS.
[2018-05-21] MEDS: ALBUTEROL SULFATE/IPRATROPIU 3 ML SOL IH SCH (19:27)
--- NOTE | 2018-05-21 19:30 | NUR ---
ENDORSED PT TO THE WILDLIFE CONTROL OPERATOR NURSE AT BEDSIDE FOR CONTINUITY OF CARE. PT IS IN STABLE CONDITION.
[2018-05-21 20:00] VITALS: BP 117/53
[2018-05-21] MEDS: CLINDAMYCIN PHOS 600MG/D5W PM 50 ML IV SCH (21:34)
[2018-05-22] VITALS: BP 138/53
--- NOTE | 2018-05-22 04:00 | NUR ---
PT ASLEEP ASLEEP BUT EASILY AROUSABLE,STABLE. SPONGE BATH GIVEN AND AM CARES. ABLE TO REPOSITION HIMSELF. NO COMPLAINTS AT THIS TIME.
[2018-05-22] MEDS: CLINDAMYCIN PHOS 600MG/D5W PM 50 ML IV SCH ×2 (04:48→12:12)
[2018-05-22] MEDS: NACL 0.9% 1,000 ML IV SCH (04:57)
[2018-05-22] MEDS: BLOOD GLUCOSE MONITORING 1 DEV DEV FS SCH ×2 (06:33→11:30)
--- NOTE | 2018-05-22 06:38 | NUR ---
ACCUCHECK TAKEN 116. NO COVERAGE.PT REMAIN STABLE AFTER PAIN MEDICATION GIVEN.PT WILL BE ENDORSED TO DAY SHIFT NURSE TO CONTINUE CARE
[2018-05-22] MEDS: ALBUTEROL SULFATE/IPRATROPIU 3 ML SOL IH SCH ×2 (07:34→13:14)
--- NOTE | 2018-05-22 07:35 | NUR ---
RECEIVED PT FROM TAX APPRAISER NURSE, JAZ, PT IS AWAKE AND ALERT AND SEATED ON THE BED WITH SIDE RAILS UP AND CALL LIGHT WITHIN REACH, PT HAS AN IV LINE ON THE LEFT AC G. 20, WITH NS AT 60ML/HR, INTACT. PT IS S/P I&D OF ABSCESS ON THE RT UPPER ARM, DRESSING DR AND INTACT. RESPIRATIONS EVEN AND NO SIGN OF DISTRESS NOTED. WILL CONTINUE TO MONITOR PT.
--- NOTE | 2018-05-22 07:38 | NUR ---
DR. AVENDANO AND THE RESIDENT DOCTORS CAME TO THE PT'S ROOM AND SPOKE TO THE PT, RT IS ON THE BEDSIDE GIVING BREATHING TREATMENT AND PT IS TOLERATING IT. NO SIGN OF DISTRESS NOTED, AND WILL CONTINUE TO MONITOR PT.
[2018-05-22 07:57] LABS: BASOPHILS % (AUTO) 0.4 % (0.0-2.0); EOSINOPHILS # (AUTO) 0.1 K/uL (0-0.4); EOSINOPHILS % (AUTO) 1.6 % (0.0-4.0); HEMATOCRIT 35.7 % (36-48); LYMPHOCYTES # (AUTO) 2.7 K/uL (2.5-16.5); LYMPHOCYTES % (AUTO) 40.7 % (20.5-51.1); MEAN CORPUSCULAR HEMOGLOBIN 30 pg (27-31); MEAN CORPUSCULAR HGB CONC 34 g/dL (33-37); MEAN CORPUSCULAR VOLUME 90.1 fL (80-94); MONOCYTES # (AUTO) 0.5 K/uL (0.8-1.0); MONOCYTES % (AUTO) 7.4 % (1.7-9.3); NEUTROPHILS # (AUTO) 3.3 K/uL (1.8-7.7); NEUTROPHILS % (AUTO) 49.9 % (42.2-75.2); PLATELET COUNT (AUTO) 196 K/uL (140-450); RED BLOOD CELL COUNT(AUTO) 3.96 MIL/uL (4.20-5.40); RED CELL DISTRIBUTION WIDTH 13.1 % (11.6-13.7); WHITE BLOOD COUNT (AUTO) 6.5 K/uL (4.8-10.8)
[2018-05-22 07:58] LABS: ANION GAP 11.7 (8-16); CARBON DIOXIDE 24.5 mmol/L (21-32); CREATININE 0.8 mg/dL (0.6-1.3); POTASSIUM 4.2 mmol/L (3.5-5.1)
[2018-05-22 08:00] VITALS: BP 136/66
[2018-05-22 08:07] LABS: CHOL/HDL RATIO 6.3 (1-4.5)
--- NOTE | 2018-05-22 08:15 | NUR ---
ACKNOWLEDGED A DISCHARGED ORDER FOR THE PT FROM DR. MILLER. WILL FACILITATE DISCHARGE PROCESS.
--- NOTE | 2018-05-22 08:30 | NUR ---
PATIENT HAS BEEN SCREENED AND CATEGORIZED MODERATE NUTRITION RISK. PATIENT WILL BE SEEN WITHIN 3-5 DAYS OF ADMISSION. 05/24/18 05/26/[address]
[2018-05-22 08:35] LABS: MAGNESIUM 2.2 mg/dL (1.8-2.4); PHOSPHORUS 4.8 mg/dL (2.5-4.9)
[2018-05-22] MEDS ORDERED: FLUTICASONE NASAL 50 MCG/ACTUATION 16 GM BTL NS SCH (09:00)
[2018-05-22] MEDS ORDERED: FUROSEMIDE 20 MG TAB PO SCH (09:00)
[2018-05-22] MEDS ORDERED: ASPIRIN 81 MG TAB.CHEW PO SCH (09:00)
[2018-05-22] MEDS ORDERED: CARVEDILOL 12.5 MG TAB PO SCH (09:00)
[2018-05-22] MEDS ORDERED: ATORVASTATIN 80 MG TAB PO SCH (09:00)
[2018-05-22] MEDS ORDERED: LACTOBACILLUS RHAMNOSUS GG 1 EACH CAP PO SCH (09:00)
[2018-05-22] MEDS ORDERED: AZELASTINE HCL NS SCH (09:00)
[2018-05-22] MEDS ORDERED: LISINOPRIL 5 MG TAB PO SCH (09:00)
[2018-05-22] MEDS ORDERED: DOCUSATE SODIUM 100 MG GELCAP PO SCH (09:00)
[2018-05-22] MEDS ORDERED: FAMOTIDINE 20 MG TAB PO SCH (09:00)
--- NOTE | 2018-05-22 09:00 | NUR ---
WOUND CARE NURSE, OZ ON THE BEDSIDE AND DOING WOUND CARE AND ASSESSMENT ON THE PT'S RT U/A SURGICAL INCISION. WOUND PICTURE TAKEN AND ATTACHED TO CHART.
--- NOTE | 2018-05-22 09:29 | NUR ---
WOUND CARE EVALUATION NOTE: REASON FOR EVALUATION: S/P RIGHT ARM ABSCESS SKIN ASSESSMENT DONE WITH THIS 72 Y/O FEMALE PT ADMITTED FROM HOME TO [facility] WITH INITIAL DX OF PAIN AND DRAINAGE TO RIGHT UPPER ARM. PAST MEDICAL HX INCLUDES HTN, DM, CAD AND S/P RIGHT ARM ABSCESS ON 04/13/[address] COBOS[address] PT. VISTED DR CBOOS OUTPATIENT CLINIC AND C/O PAIN, SWELLING AND DRAINAGE.. ALL ABOVE INFORMATION OBTAINED FROM ADMISSION H&P AND PT. PT IS AAX4. PT IS AWAKE. SKIN IS WARM AND DRY, BLE NO HAIR GROWTH, BILATERAL DORSAL PEDAL PULSES PRESENT AND NORMAL.CONTINENT OF BOWEL AND BLADDER. PLAN OF CARE DISCUSSED WITH PRIMARY RN AND PT. PT. VERBALIZES UNDERSTANDING. INTEGUMENTARY: -RIGHT UPPER ARM S/P ABSCESS SURGICAL WOUND, 1S3G0FV, WOUND BED IS RED AND CLEAN, SMALL AMOUNT OF SANGUINOUS DRAINAGE, NO ODOR, VANDANA-WOUND SKIN INTACT, AND PAIN 4/10 RECOMMENDATIONS: -CLEANSE RIGHT UPPER ARM SURGICAL WOUND WITH NS, PAT DRY, APPLY SILVASORB GEL TO WOUND AND PACK LOOSELY WITH ADAPTIC DRESSING, AND COVER WITH DRY DRESSING DAILY AND PRN IF SOILING. -KEEP AREA DRY AND CLEAN AT ALL TIMES - FOLLOW UP DR. COBOS OUTPATIENT 7-10 DAYS ALL ABOVE RECOMMENDATIONS DISCUSSED WITH PRIMARY RN AND DR. MILLER PLEASE CONTACT WOUND CARE NURSE FOR ANY QUESTION AND CHANGE OF WOUND CONDITION.
[2018-05-22] MEDS: metFORMIN 500 MG TAB PO SCH (09:47)
[2018-05-22] MEDS ORDERED: LACT10CA1 PO (10:02)
--- NOTE | 2018-05-22 10:43 | NUR ---
DR. MILLER CALLED AND INFORMED THE NEW PRESCRIPTION OF MECLIZINE FOR THE PT. WILL FOLLOW THROUGH WITH THE ORDER. DR. MILLER NEEDS TO SPEAK WITH FAMILY MEMBER TO DISCUSS ABOUT THE WOUND CARE FOR THE PT. ACKNOWLEDGED AND WILL NOTIFY MD PRIOR TO OPT'S DISCHARGE.
[2018-05-22] MEDS ORDERED: MECLIZINE 25 MG TAB PO SCH (11:00)
--- NOTE | 2018-05-22 11:01 | NUR ---
ASSISTED [PT TO THE BATHROOM AND BACK TO THE BED, MECLIZINE WAS GIVEN FOR THE FEELING OF DIZZINESS. PT TOLERATED IT AND WILL CONTINUE TO MONITOR.
--- NOTE | 2018-05-22 12:12 | NUR ---
PT IS AWAKE AND MEDICATION GIVEN VIA IVPB AND PT TOLERATED IT. NO REACTION NOTED. WILL MONITOR PT.
--- NOTE | 2018-05-22 13:40 | NUR ---
DISCHARGED PT VIA WHEELCHAIR WITH THE FAMILY, DISCHARGED PRESCRIPTION, TEACHINGS AND INSTRUCTIONS GIVEN AND PT VERBALIZED UNDERSTANDING. IV LINE AND ARM BAND REMOVED. DR. MILLER SPOKE TO THE FAMILY REGARDING WOUND CARE. PT IS STABLE AT THIS TIME.
== END 2018-05-22 13:40 | disposition home or self-care (01) | DRG 383 ==
LOC: MED 11:35 → MTU 13:32
PROVIDERS: ADMIT General Practice; ATTEND General Practice
PROC: 0JBG0ZZ Excision of Right Lower Arm Subcutaneous Tissue and Fascia, Open Approach (ICD-10-PCS; principal; 2018-05-21 13:45)
DX: L02.413 Cutaneous abscess of right upper limb (principal); D68.59 Other primary thrombophilia; E11.8 Type 2 diabetes mellitus with unspecified complications; E66.01 Morbid (severe) obesity due to excess calories; I10 Essential (primary) hypertension; I25.10 Atherosclerotic heart disease of native coronary artery without angina pectoris; K21.9 Gastro-esophageal reflux disease without esophagitis; E78.5 Hyperlipidemia, unspecified; J45.909 Unspecified asthma, uncomplicated; Z66 Do not resuscitate; Z68.36 Body mass index [BMI] 36.0-36.9, adult; Z80.9 Family history of malignant neoplasm, unspecified; Z82.49 Family history of ischemic heart disease and other diseases of the circulatory system; Z87.891 Personal history of nicotine dependence
CPT/HCPCS: 36415; 71045; 80048; 80053; 82150; 82948; 83605; 83690; 83735; 83880; 84100; 84436; 84443; 85025; 85610; 85730; 87081; 93005; 94640; 99285; J0690; J1815; J2001; J2405; J3490; J7030; J7060; J7620; J8597; Q0092

== ENCOUNTER 2019-04-09 15:49 | Emergency (ER) | payer MEDICAID ==
[~2019-04-09] VITALS: Ht 149.9 cm; Wt 95.3 kg
[~2019-04-09 15:49] MED LIST changes: -AMOX-999 PO; +ASPI-1718 PO; -ASPI81CT89 PO; -BECL10.62 IH; -DOXY100C9 PO; -HYDR-5122 PO; -LACT1.4C PO; +LACT10CA1 PO; -ONDA8ODT2 PO
[2019-04-09 15:55] VITALS: BP 151/93
--- NOTE | 2019-04-09 16:10 | NUR ---
BIB DAUGHTER IN LAW. AAO X4 C/O VAGINAL BLEEDING, PELVIC PAIN AND HEADACHE 04/05 X1 WEEK. PER PT, SHE IS SATURATING 1 PAD EVERY HOUR. PT STATES SHE WENT THROUGH MENOPAUSE 22 YEARS AGO. PT IS TACHYCARDIC AT 110 BPM, O2 SAT RA 94-95%. PT DENIES FEVER, VOMIT. PT STATES MILD SOB, DIZZINESS. PT HAS STEADY GAIT. PT PLACED ON FULL TITLE I MATH TUTOR. HOB UP. BED SIDE RAILS UP X1. ON LOW BED POSITION, LOCKED. ER TO EVALUATE PT.
--- NOTE | 2019-04-09 16:21 | NUR ---
DR STINSON AT BEDSIDE FOR PT EVALUATION
[2019-04-09 16:40] LABS: APPEARANCE,URINE HAZY (CLEAR); BILIRUBIN,URINE NEGATIVE (NEGATIVE); BLOOD, URINE TRACE-I (NEGATIVE); COLOR,URINE YELLOW (YELLOW); LEUKOCYTE ESTERASE ,URINE NEGATIVE (NEGATIVE); NITRITE, URINE NEGATIVE (NEGATIVE); PH,URINE 5.5 (5.0-9.0); UGLUCOSE NEGATIVE (NEGATIVE)
[2019-04-09] MEDS ORDERED: NACL 0.9% 1,000 ML IV ONE (16:45)
[2019-04-09] MEDS ORDERED: MORPHINE SULFATE 2 MG/ML SYR IVP ONE (16:45)
[2019-04-09 16:51] LABS: RBC,URINE 0-5 /HPF (0-5); WBC,URINE 0-5 /HPF (0-5)
--- NOTE | 2019-04-09 17:13 | NUR ---
STUDENT SERVICES VICE PRESIDENT AT BEDSIDE FOR BLOOD DRAW
--- NOTE | 2019-04-09 17:20 | NUR ---
STRAIGHT CATH ORDERED USING STERILE TECHNIQUE. URINE SPECIMEN OBTAINED OF 60 ML. PT TOLERATED WELL. DAUGHTER IN LAW AT BEDSIDE
[2019-04-09 17:25] LABS: BASOPHILS % (AUTO) 0.4 % (0.0-2.0); EOSINOPHILS # (AUTO) 0.1 K/uL (0-0.4); HEMATOCRIT 41.1 % (36-48); HEMOGLOBIN 13.7 g/dL (12.0-16.0); LYMPHOCYTES # (AUTO) 2.7 K/uL (2.5-16.5); LYMPHOCYTES % (AUTO) 32.3 % (20.5-51.1); MEAN CORPUSCULAR HEMOGLOBIN 30 pg (27-31); MEAN CORPUSCULAR HGB CONC 33 g/dL (33-37); MEAN CORPUSCULAR VOLUME 90.2 fL (80-94); MONOCYTES # (AUTO) 0.6 K/uL (0.8-1.0); NEUTROPHILS % (AUTO) 59.3 % (42.2-75.2); PLATELET COUNT (AUTO) 224 K/uL (140-450); RED BLOOD CELL COUNT(AUTO) 4.56 MIL/uL (4.20-5.40); RED CELL DISTRIBUTION WIDTH 13.3 % (11.6-13.7); WHITE BLOOD COUNT (AUTO) 8.4 K/uL (4.8-10.8)
[2019-04-09 17:35] LABS: ANION GAP 13.8 (8-16); CARBON DIOXIDE 26.4 mmol/L (21-32); CHLORIDE 105 mmol/L (98-107); CREATININE 0.9 mg/dL (0.6-1.3); GLUCOSE 106 mg/dL (74-106); POTASSIUM 4.2 mmol/L (3.5-5.1); SODIUM SERUM 141 mmol/L (136-145); UREA NITROGEN, BLOOD 18 mg/dL (7-18)
[2019-04-09 17:39] LABS: PROTHROMBIN TIME 9.9 secs (10.8-13.4)
--- NOTE | 2019-04-09 17:40 | NUR ---
URINE SPECIMEN WAS HANDED TO BLEACH SUPERVISOR
[2019-04-09 17:41] LABS: ALBUMIN 3.4 g/dL (3.4-5.0); ASPARTATE AMINOTRANSFERASE 13 U/L (15-37); TOTAL BILIRUBIN 0.4 mg/dL (0.0-1.0)
[2019-04-09 17:52] LABS: APPEARANCE,URINE CLEAR (CLEAR); BILIRUBIN,URINE NEGATIVE (NEGATIVE); BLOOD, URINE 1+ (NEGATIVE); COLOR,URINE YELLOW (YELLOW); LEUKOCYTE ESTERASE ,URINE NEGATIVE (NEGATIVE); NITRITE, URINE NEGATIVE (NEGATIVE); UGLUCOSE NEGATIVE (NEGATIVE)
[2019-04-09 18:04] LABS: RBC,URINE 0-5 /HPF (0-5); WBC,URINE NONE SEEN /HPF (0-5)
--- NOTE | 2019-04-09 18:05 | NUR ---
PT COMPLAINTS OF HEADACHE 03/05, DENIES ABDOMINAL/PELVIC PAIN. DR STINSON MADE AWARE.
[2019-04-09] MEDS ORDERED: KETOROLAC 30 MG/ML VIAL IVP ONE (18:10)
--- NOTE | 2019-04-09 18:14 | NUR ---
ADMINISTERED TORADOL ORDERED VIA IV TO LFA. INTACT AND PATENT. PT TOLERATED WELL. ASSISTED PT FOR RE POSITIONING AND DIMMED THE LIGHTS FOR COMFORT. WILL CONTINUE TO MONITOR.
--- NOTE | 2019-04-09 18:20 | NUR ---
EDGING MACHINE FEEDER AT BEDSIDE
[2019-04-09 19:13] VITALS: BP 134/76
--- NOTE | 2019-04-09 19:13 | NUR ---
IV removed, catheter intact and site benign. Applied folded 4x4 gauze and tape to stop bleeding.
--- NOTE | 2019-04-09 19:15 | NUR ---
Patient discharged with v/s stable. Written and verbal after care instructions given and explained. Patient alert, oriented and verbalized understanding of instructions. Ambulatory with steady gait. All questions addressed prior to discharge. ID band removed. Patient advised to follow up with PMD. Rx of MOTRIN, TRAMADOL, PREMARIN given. Patient educated on indication of medication including possible reaction and side effects. Opportunity to ask questions provided and answered.
== END 2019-04-09 19:13 | disposition home or self-care (01) ==
LOC: MED 15:49
DX: N93.9 Abnormal uterine and vaginal bleeding, unspecified (principal); R30.9 Painful micturition, unspecified; I10 Essential (primary) hypertension; E11.9 Type 2 diabetes mellitus without complications; J45.909 Unspecified asthma, uncomplicated; Z79.899 Other long term (current) drug therapy; Z79.82 Long term (current) use of aspirin; Z87.42 Personal history of other diseases of the female genital tract
CPT/HCPCS: 36415; 76856; 80053; 81001; 85025; 85610; 85730; 96361; 96374; 96375; 99284; J1885; J2270; J7030; Q0092

== ENCOUNTER 2019-07-18 16:08 | Emergency (ER) | payer MEDICAID ==
[~2019-07-18] VITALS: Ht 149.9 cm; Wt 94.3 kg
[2019-07-18 16:19] VITALS: BP 207/123
--- NOTE | 2019-07-18 16:36 | NUR ---
PATIENT AMBULATED TO BED 5.
--- NOTE | 2019-07-18 16:51 | NUR ---
PT PRESENTS TO ED WITH C/O LEFT ARM PAIN RADIATING TO LEFT HAND X 2 WEEKS. PT DENIES FALL OR INJURY TO L ARM. +CMS. PT STATES PAIN 10/10 AT THIS TIME AND STATES "IT HURTS". PT SAID THAT SHE HAS HAD "LITTLE BIT" OF PAIN X 2 MONTHS AND "A LTO OF PAIN" X 2 WEEKS. PT RESPORTS TAKING TYLENOL YESTERDAY. PT DENIES SOB, CP, N/V/D AT THIS TIME. SPO2 97% IN ROOM AIR. PTS SKIN IS PINK, WARM, AND DRY. PT PRESENTS WITH A CLEAR SPEECH AND IS CONVERSING APPROPRIATELY. HOB ELEVATED, PT POSITIONED FOR COMORT. ER MD AWARE OF PT STATUS. PMH: HTN, PREDIABETIC RX: DOESN'T REBEMBER MEDS NAME AT THIS TIME NKA
[2019-07-18 17:28] LABS: BASOPHILS # (AUTO) 0.2 K/uL (0.00-0.22); BASOPHILS % (AUTO) 1.9 % (0.0-2.0); EOSINOPHILS # (AUTO) 0.1 K/uL (0-0.4); EOSINOPHILS % (AUTO) 0.9 % (0.0-4.0); HEMATOCRIT 41.4 % (36-48); HEMOGLOBIN 14.1 g/dL (12.0-16.0); LYMPHOCYTES # (AUTO) 3.4 K/uL (2.5-16.5); LYMPHOCYTES % (AUTO) 35.8 % (20.5-51.1); MEAN CORPUSCULAR HEMOGLOBIN 31 pg (27-31); MEAN CORPUSCULAR HGB CONC 34 g/dL (33-37); MEAN CORPUSCULAR VOLUME 90.2 fL (80-94); MONOCYTES # (AUTO) 0.5 K/uL (0.8-1.0); MONOCYTES % (AUTO) 5.5 % (1.7-9.3); NEUTROPHILS # (AUTO) 5.3 K/uL (1.8-7.7); NEUTROPHILS % (AUTO) 55.9 % (42.2-75.2); PLATELET COUNT (AUTO) 253 K/uL (140-450); RED BLOOD CELL COUNT(AUTO) 4.59 MIL/uL (4.20-5.40); RED CELL DISTRIBUTION WIDTH 12.5 % (11.6-13.7); WHITE BLOOD COUNT (AUTO) 9.5 K/uL (4.8-10.8)
[2019-07-18 17:39] LABS: ANION GAP 13.6 (8-16); CARBON DIOXIDE 26.7 mmol/L (21-32); CHLORIDE 107 mmol/L (98-107); CREATININE 0.8 mg/dL (0.6-1.3); GLUCOSE 136 mg/dL (74-106); POTASSIUM 4.3 mmol/L (3.5-5.1); SODIUM SERUM 143 mmol/L (136-145); UREA NITROGEN, BLOOD 15 mg/dL (7-18)
[2019-07-18] MEDS ORDERED: HYDROcodone/APAP 5/325 MG 1 TAB TAB PO ONE (17:40)
[2019-07-18 17:45] LABS: ALBUMIN 3.7 g/dL (3.4-5.0); ASPARTATE AMINOTRANSFERASE 15 U/L (15-37); TOTAL BILIRUBIN 0.3 mg/dL (0.0-1.0)
--- NOTE | 2019-07-18 17:50 | NUR ---
REPOSITIONED PT FOR COMFORT, WILL CONTINUE TO MONITOR.
--- NOTE | 2019-07-18 18:10 | NUR ---
PT RESTING AT BEDSIDE.
--- NOTE | 2019-07-18 18:40 | NUR ---
Patient discharged with v/s stable. Written and verbal after care instructions given and explained. Patient alert, oriented and verbalized understanding of instructions. Ambulatory with steady gait. All questions addressed prior to discharge. ID band removed. Patient advised to follow up with PMD. Rx of NORCO, VALIUM, INUPROFEN, AND NARCAN given. Patient educated on indication of medication including possible reaction and side effects. Opportunity to ask questions provided and answered.
[2019-07-18 18:41] VITALS: BP 160/108
== END 2019-07-18 18:40 | disposition home or self-care (01) ==
LOC: MED 16:08
DX: M25.512 Pain in left shoulder (principal); J45.909 Unspecified asthma, uncomplicated; E11.9 Type 2 diabetes mellitus without complications; I10 Essential (primary) hypertension; Z98.890 Other specified postprocedural states; Z79.899 Other long term (current) drug therapy; Z79.82 Long term (current) use of aspirin
CPT/HCPCS: 36415; 71045; 80053; 84484; 85025; 93005; 99284; Q0092

== ENCOUNTER 2019-08-12 11:04 | Emergency (ER) | payer MEDICAID ==
[~2019-08-12] VITALS: Ht 157.5 cm; Wt 94.3 kg
--- NOTE | 2019-08-12 11:10 | NUR ---
Patient ambulated to bed 11. RN evaluating patient at bedside.
[2019-08-12 11:18] VITALS: BP 157/78
--- NOTE | 2019-08-12 11:18 | NUR ---
73 Y/O FEMALE PRESENTING WITH LEFT SHOULDER PAIN 06/05 X 4 MONTHS. PER PT WENT TO PCP GOT A CORTISOL INJECTION AND DID NOT ALLEVIATE PAIN. PER PT NKA. MEDICAL HX DM, HTN, ABD SURG. RX TAKES ON DAILY BASIS. DENIES N/V/D. SIDE RAIL X1. FAMILY AT BEDSIDE.
[2019-08-12] MEDS ORDERED: HYDROcodone/APAP 5/325 MG 1 TAB TAB PO ONE (12:30)
[2019-08-12] MEDS ORDERED: KETOROLAC 60 MG/2 ML VIAL IM ONE (12:30)
[2019-08-12] MEDS ORDERED: ONDANSETRON 4 MG ODT PO ONE (13:10)
[2019-08-12 14:25] VITALS: BP 105/55
--- NOTE | 2019-08-12 14:25 | NUR ---
Patient discharged with v/s stable. Written and verbal after care instructions given and explained. Patient alert, oriented and verbalized understanding of instructions. Ambulatory with steady gait. All questions addressed prior to discharge. ID band removed. Patient advised to follow up with PMD. Rx of ZOFRAN , TRAMADOL given. Patient educated on indication of medication including possible reaction and side effects. Opportunity to ask questions provided and answered.
== END 2019-08-12 14:25 | disposition home or self-care (01) ==
LOC: MED 11:04
DX: M25.512 Pain in left shoulder (principal); J45.909 Unspecified asthma, uncomplicated; E11.9 Type 2 diabetes mellitus without complications; I10 Essential (primary) hypertension; Z79.82 Long term (current) use of aspirin; Z79.899 Other long term (current) drug therapy
CPT/HCPCS: 73030; 96372; 99283; J1885; Q0092; Q0162